=== PATIENT | female | born 1935 | race Caucasian/White ===

== ENCOUNTER 2018-09-12 12:17 | Inpatient (IN) | payer MEDICARE, BC ==
[2018-09-12] MEDS ORDERED: Acetaminophen 325 MG Tab PO PRN (13:13)
[2018-09-12] MEDS ORDERED: Sodium Chloride 0.9% 10 ML Syringe FLUSH PRN (13:13)
[2018-09-12] MEDS ORDERED: Docusate Sodium 100 MG Cap PO PRN (13:13)
[2018-09-12] MEDS ORDERED: Furosemide 40 MG/4 ML VIAL IVPUSH ONE (13:23)
[2018-09-12] MEDS ORDERED: Furosemide 40 MG Tab PO SCH (14:00)
[2018-09-12] MEDS ORDERED: Warfarin Sliding Scale PO SCH (14:15)
--- NOTE | 2018-09-12 16:11 | HP ---
ADMISSION DATE: 09/12/2018 History is from the patient and her old chart. She is deemed as a good historian. CHIEF COMPLAINT: Shortness of breath. HISTORY OF PRESENT ILLNESS: Ms. Bay is an 82-year-old woman from [place], [place], with a history of chronic kidney disease, coronary artery disease, and peripheral vascular disease who has had worsening swelling and dyspnea over the past month. She said it has particularly worsened over the past 2 weeks and she was seen in [place] on 08/22. She was started on furosemide 20 mg daily. She says it initially made her diurese, but she does not feel like it has done much in the last couple of weeks. She went to the clinic today because of the worsening symptoms. She was evaluated by Vic Booth PA-C, and arrangements were made for admission to [facility] for acute care. The patient denies any chest pain or palpitations. She does give a history of chronic atrial fibrillation. PAST MEDICAL HISTORY: Extensive for vascular disease including coronary angiogram with angioplasty and multiple stent placement at [place] over 10 years ago. She has chronic atrial fibrillation, on anticoagulation. She has had a lower extremity vascular graft from the left leg to the right leg for severe peripheral vascular disease. 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 She states she had drainage of her chest, likely thoracenteses, approximately 2 to 3 years ago done in [place]. She has had ORIF of a left ankle fracture, ORIF of a left wrist fracture, and closed right wrist and right ankle fractures. She has not been told she has had osteoporosis, however. She denies other surgeries, injuries, concussions, or significant medical problems. Of note, she was admitted to [facility] in [place] on July 22 of this year with an episode of acute tubular necrosis with renal insufficiency, hypercalcemia, hypomagnesemia, and hypokalemia. She also is listed as having factor V Leiden mutation with a history of DVT and antiphospholipid antibody syndrome. Echocardiogram has demonstrated mild mitral and tricuspid regurgitations, and no wall motion abnormalities on echocardiogram. MEDICATIONS: 1. Furosemide 20 mg daily. 2. Potassium chloride 20 mEq daily. 3. Amlodipine 10 mg daily. 4. Carvedilol 12.5 mg b.i.d. 5. Hyzaar 50/12.5, one daily. 6. Triamcinolone cream b.i.d. p.r.n. to leg dermatitis. 7. Warfarin adjusted to INR, currently 2.5 mg 6 days a week and 5 mg 1 day a week. 8. Mag-Ox 400 mg b.i.d. 9. Tylenol p.r.n. 10.Eucerin cream p.r.n. 11.Gelatin capsules p.r.n. 12.Nystatin powder to rash p.r.n. 13.Aspirin 81 mg daily. 14.Capsaicin cream. 15.Garlic capsules. ALLERGIES: Penicillin listed as hives; clindamycin, swallowing difficulty; and Levaquin cause shortness of breath. HABITS: Nonsmoker for the past 40 years. She does drink approximately 6 to 10 alcoholic beverages, usually beer, per week. REVIEW OF SYSTEMS: GENERAL: No seizures or syncope. She has slowly gained weight with today's weight at the [facility] 179 pounds. This is up from 160 pounds on 08/22 and 142 pounds back on 08/08. HEENT: Shows clear TMs. Pupils are equal and reactive. Oropharynx is clear with poor dentition. NECK: Supple. LUNGS: Have rales at the left greater than right bases. HEART: Irregular, in atrial fib, but rate is controlled. No murmurs heard. ABDOMEN: Mildly protuberant with normal bowel sounds. Soft and nontender. No masses. No organomegaly is palpable. EXTREMITIES: Show severe retracted, thin, avascular skin over both feet and ankles consistent with severe peripheral vascular disease. Pedal pulses are not palpable on either foot. She has pitting edema to the mid thighs on both sides and absence of 3 toes on the right. No open ulcerations. NEUROLOGIC: Mental status is intact. Motor exam appears symmetric. Gait is not tested. LABORATORY DATA: White count 5000, hemoglobin 12.9, MCV 88, platelets 408. INR 2.49. Sodium 138, potassium 4.1, BUN 16, creatinine 1.4, calcium 8.7, albumin 2.8. Chest x-ray shows significant cardiomegaly and vascular redistribution with bilateral pleural effusions, consistent with congestive heart failure. ASSESSMENT: 1. An 82-year-old woman with progressively worsening congestive heart failure, now approximately 30 pounds above her weight 6 weeks ago. 2. Coronary artery disease with history of stents. 3. Chronic atrial fibrillation, anticoagulated. 4. History of factor V Leiden mutation and antiphospholipid antibody syndrome. 5. Chronic kidney disease. 6. Osteoporosis with multiple previous fractures. PLAN: She is admitted to the hospital. We will diurese her acutely, watch her renal function, continue anticoagulation, and anticipate steady improvement. I would anticipate a 48 to 72-hour hospital stay with plans to return home upon discharge. We will continue to provide Palliative Care measures for underlying coronary artery disease, peripheral vascular disease, ambulatory difficulty, etc. /[id number] MARYANNE/NED
[2018-09-12] MEDS: Warfarin 2.5 MG Tab PO SCH (16:52)
[2018-09-12] MEDS: Carvedilol 12.5 MG Tab PO SCH (20:37)
[2018-09-12] MEDS: Potassium Chloride 20 MEQ Tab.ER PO SCH (20:37)
[2018-09-13] MEDS ORDERED: Metolazone 2.5 MG Tab PO ONE (07:44)
[2018-09-13] MEDS: Carvedilol 12.5 MG Tab PO SCH ×2 (08:08→20:54)
[2018-09-13] MEDS: Potassium Chloride 20 MEQ Tab.ER PO SCH ×2 (08:08→20:54)
[2018-09-13] MEDS: amLODIPine 5 MG Tab PO SCH (08:10)
[2018-09-13] MEDS ORDERED: Hydrochlorothiazide 12.5 MG Cap PO SCH (09:00)
[2018-09-13] MEDS ORDERED: Losartan 50 MG Tab PO SCH (09:00)
[2018-09-13] MEDS: Furosemide 40 MG Tab PO SCH ×2 (09:29→15:07)
--- NOTE | 2018-09-13 10:13 | CR ---
INDICATION: Dyspnea. CHEST TWO VIEWS: PA and lateral views of the chest 09/12/18 were compared with 08/22/18 and 07/20/18 and revealed continued cardiomegaly which appears to be generalized with tortuous aorta calcified in the arch and descending portion. Findings compatible with COPD are again noted. Bilateral pleural parenchymal changes are noted compatible with pneumonia and pleuritis appearing more prominent on the right in the mid lung field but also at both lung bases. Pleural effusions are small compatible with pleuritis and should be correlated clinically. Calcified pleural plagues are again suggested. Apical pleural thickening is noted right greater than left likely fibrotic in nature. IMPRESSION: 1. Areas of infiltration noted mid lung hoover and lung bases especially right mid lung field and left lung base. These appear to be chronic and maybe on the basis of fibrosis and/or chronic inflammatory disease with pleuritis and should be correlated clinically. Superimposed acute pneumonia certainly cannot be excluded. 2. No definite evidence of CHF. 3. ASHD with cardiomegaly. 4. Diminished bone density suggesting osteoporosis. 5. Probable COPD--correlate clinically. MTDD
[2018-09-13] MEDS: Warfarin 2.5 MG Tab PO SCH (16:14)
[2018-09-13] MEDS ORDERED: Spironolactone 25 MG Tab PO SCH (17:00)
[2018-09-14] MEDS: Furosemide 80 MG Tab PO SCH ×2 (08:10→13:33)
[2018-09-14] MEDS: Potassium Chloride 20 MEQ Tab.ER PO SCH ×2 (08:11→21:15)
[2018-09-14] MEDS: Carvedilol 12.5 MG Tab PO SCH ×2 (08:11→21:15)
[2018-09-14] MEDS: amLODIPine 5 MG Tab PO SCH (08:12)
--- NOTE | 2018-09-14 09:03 | PN ---
DATE SEEN: 09/13/2018 HISTORY: Radha is an 82-year-old resident of [place], [place], who was sent in from the [facility] because of worsening CHF. Looking back through her record, she had gained approximately 35 pounds over the past couple of months. She was short of breath and having bilateral leg edema. She was admitted yesterday, given IV Lasix, and she diuresed approximately 4 pounds overnight. She feels satisfactory this morning and cannot tell much change in her breathing. PHYSICAL EXAMINATION: VITAL SIGNS: Blood pressure 145/64, pulse 79 and regular, respirations 18, O2 saturation 90% on 2 L nasal cannula, temp 96.3, weight 170 pounds 8 ounces. SKIN: Clear without rash. She does have the thin erythematous dry taut skin over both lower extremities, consistent with severe peripheral vascular disease. LUNGS: Clear in the upper lung hoover. She has fine rales at both bases. HEART: Regular. No murmur or gallop heard. ABDOMEN: Soft, nontender. EXTREMITIES: Thin skin, peripheral vascular disease, and trace edema at the malleoli. LABORATORY: Sodium 140, potassium 3.9, BUN 15, creatinine 1.2. BNP 7,964. Albumin 2.4. TSH 4.93. Urinalysis is negative. ASSESSMENT: Severe and chronic congestive heart failure. PLAN: We will continue diuresis with oral Lasix twice a day. Add a single dose of Diulo. I anticipate at least another 48 hours of acute hospital stay with a goal weight gain over the next few days of another 10+ pounds. /[id number] MARYANNE/NED
--- NOTE | 2018-09-14 11:17 | PN ---
DATE SEEN: 09/14/2018 HISTORY: Ms. Bay is an 82-year-old woman, who was admitted on 09/12/2018 because of increasing swelling and shortness of breath. She was up 30 pounds from an outpatient weight about 2 months prior. On admission, she was started on IV Lasix and given a dose of oral metolazone. Her admission weight was 174 pounds 14 ounces and weight this morning down to 159 pounds 9 ounces for 15 pounds weight loss. She is still short of breath, when she walks. She remains on oxygen at 2 L nasal cannula with O2 saturation of 91%. She is not having any chest pain, nausea, vomiting, and is tolerating her medications satisfactorily. PHYSICAL EXAMINATION: GENERAL: She is alert, comfortable. She is a good historian. VITAL SIGNS: Blood pressure 140/71, pulse 79 and irregular and slow atrial fibrillation, respirations 17, O2 saturation 91% on 2 L nasal cannula, temp 97, weight 159 pounds 9 ounces. SKIN: Clear without rash. HEENT: Her mouth to be dry. LUNGS: Coarse rales at the left base and fine rales at the right base. Slightly distant breath sounds. HEART: Irregular in slow atrial fibrillation. No murmurs heard. ABDOMEN: Soft, nontender. EXTREMITIES: Thin hard skin changes of peripheral vascular disease. LABORATORY DATA: Electrolytes normal. BUN 13, creatinine 1.1, albumin 2.4. TSH 4.93. ASSESSMENT: Congestive heart failure, improving. PLAN: She will get additional Lasix today, I have increased her enalapril dose and added spironolactone. She remains on warfarin for atrial fibrillation. I will recheck a chest x-ray and laboratory studies in the morning with anticipate discharge to home in 24-48 hours. We will continue to provide palliative care measures for underlying O2 or underlying congestive heart failure, respiratory insufficiency, and continually reassess her need for oxygen. /[id number] MARYANNE/NED
[2018-09-14] MEDS: Spironolactone 25 MG Tab PO SCH (11:56)
[2018-09-14] MEDS: Warfarin 2.5 MG Tab PO SCH (16:59)
[2018-09-15] MEDS: Furosemide 80 MG Tab PO SCH ×2 (07:58→13:44)
[2018-09-15] MEDS: Potassium Chloride 20 MEQ Tab.ER PO SCH ×2 (08:38→20:46)
[2018-09-15] MEDS: amLODIPine 5 MG Tab PO SCH (08:38)
[2018-09-15] MEDS: Carvedilol 12.5 MG Tab PO SCH ×2 (08:39→20:46)
[2018-09-15] MEDS: Spironolactone 25 MG Tab PO SCH (08:39)
--- NOTE | 2018-09-15 12:57 | PN ---
DATE SEEN: 09/15/2018 HISTORY: Radha is an 82-year-old woman from [place], who was sent in from the [place] [facility] because of worsening congestive heart failure. On admission, she was quite dyspneic. She was having significant peripheral edema, and her admission weight was 174 pounds 14 ounces. She was started on IV diuresis. Her beta tra and ARB were briefly held, due to low blood pressure, but then resumed as her blood pressure tolerated. Her warfarin was continued for the chronic atrial fibrillation, and her potassium was replaced. She steadily lost weight, and her breathing is improved. She remains on oxygen. PHYSICAL EXAMINATION: GENERAL: She is alert and an excellent historian. VITAL SIGNS: Blood pressure 109/57, pulse 76 and irregular, respirations 16, O2 saturation 98% on 2 L nasal cannula, temp 98.7. Weight this morning 147 pounds 2 ounces for a 27 1/2-pound weight loss. HEENT: Clear. LUNGS: Coarse rales, lower 1/3 both sides. HEART: Irregular rate controlled. ABDOMEN: Soft. EXTREMITIES: Thick skin with severe peripheral vascular disease changes and trace edema at the malleoli. ASSESSMENT: 1. Severe congestive heart failure with cardiac decompensation, improving. 2. Chronic atrial fibrillation, on anticoagulation. 3. Severe peripheral vascular disease. 4. Poor mobility due to the above. PLAN: We will discontinue her IV. Continue her warfarin and her oral diuresis. Increase activity today and reassess her need for oxygen, and if continuing to improve, plan discharge to her home tomorrow with home health care. /[id number] MARYANNE/NED
[2018-09-15] MEDS: Warfarin 2.5 MG Tab PO SCH (16:58)
[2018-09-16] MEDS: Carvedilol 12.5 MG Tab PO SCH (08:09)
[2018-09-16] MEDS: Spironolactone 25 MG Tab PO SCH (08:09)
[2018-09-16] MEDS: Potassium Chloride 20 MEQ Tab.ER PO SCH (08:10)
[2018-09-16] MEDS: amLODIPine 5 MG Tab PO SCH (08:11)
--- NOTE | 2018-09-16 08:31 | CR ---
INDICATION: CHF/follow up infiltration. CHEST PA AND LATERAL: PA and lateral views of the chest were obtained 09/15/18 and compared with 09/12/18 revealing no significant appearing infiltrate change- -no definite new acute process. There is still no definite evidence of CHF. The heart is enlarged as previously with the aortic calcification and tortuosity. Findings compatible with COPD are again seen. Moderately extensive infiltration is noted on the right to the mid to lower lung field and at the left lower lung field. Pleural effusions are present bilaterally as suggested by blunted costophrenic angles and posterior sulci and may represent pleuritis in a patient with pneumonia. IMPRESSION: Fairly stable chest with multiple findings as noted above. MTDD
[2018-09-16] MEDS ORDERED: Furosemide 80 MG Tab PO SCH (09:00)
--- NOTE | 2018-09-16 11:01 | PN ---
DATE SEEN: 09/16/2018 REASON FOR ADMISSION: CHF. HISTORY OF PRESENT ILLNESS: This is an 82-year-old female admitted for CHF, treated with diuresis, feels ready to go home today. She is still on about a liter of oxygenation because she has hypoxia on ambulation. She complains of no chest pain. PAST MEDICAL HISTORY: Coronary artery disease, atrial fibrillation, factor V Leiden mutation. ALLERGIES: Reviewed. MEDICATIONS: Reviewed. PHYSICAL EXAMINATION: VITAL SIGNS: Today, her blood pressure is 141/59, pulse is 86, and temperature is 98.1. ENT: Normal. NECK: Supple with no JVD or distention. CHEST: Clear with exception of some rales in the lower bases. ABDOMEN: Soft. CARDIOVASCULAR: Irregular rate. EXTREMITIES: Trace edema. LABORATORY DATA: Today, INR is 2.2. ProBNP 6716. Creatinine is normal. FINAL IMPRESSION: 1. Congestive heart failure exacerbation. 2. Atrial fibrillation. 3. History of coronary disease. PLAN: My plan is to discharge her today to home. She will need Home Health to help with medications, weight, and blood pressure measurements. She has no difficulty with activities of daily living. /[id number] JEET/NED
--- NOTE | 2018-09-17 03:41 | DISCH ---
DISCHARGE DATE: 09/16/2018 REASON FOR ADMISSION: CHF exacerbation. DIAGNOSES: Coronary artery disease, atrial fibrillation, factor V Leiden mutation, and chronic kidney disease also has a history of osteoporosis. PROCEDURES: None. BRIEF HISTORY AND HOSPITAL COURSE: This is an 82-year-old female admitted with congestive heart failure exacerbation. She was treated with IV Lasix. She improved, diuresed over 30 pounds. Normal creatinine and vital signs on discharge. However, she is still short of breath and needs home O2. She also needs help with blood pressure, measurement weight, INR checks, and gets extremely short of breath on ambulation; therefore, most considered homebound and will need home health services. DISCHARGE MEDICATIONS: 1. 80 mg Lasix daily. 2. Aldactone 25 mg a day. 3. Potassium chloride 20 mEq b.i.d. 4. Enalapril 2.5 mg a day. 5. Carvedilol 12.5 mg b.i.d. 6. Amlodipine 5 mg a day. 7. Acetaminophen 650 mg q.4 hours p.r.n. 8. Coumadin as directed. 9. Aspirin 81 mg a day. FOLLOWUP: She will see her physician, Vic Booth next week. Please note that I spent more than 35 minutes in the discharge of the patient. /[id number] JEET/NED
== END 2018-09-16 10:40 | disposition home health service (06) | DRG 292 ==
LOC: FB.MS 13:03
PROVIDERS: ADMIT Family Medicine; ATTEND Family Medicine
DX: I13.0 Hypertensive heart and chronic kidney disease with heart failure and stage 1 through stage 4 chronic kidney disease, or unspecified chronic kidney disease (principal); D68.51 Activated protein C resistance; I50.9 Heart failure, unspecified; N18.9 Chronic kidney disease, unspecified; Z87.891 Personal history of nicotine dependence; I25.10 Atherosclerotic heart disease of native coronary artery without angina pectoris; I73.9 Peripheral vascular disease, unspecified; I48.2 Chronic atrial fibrillation; Z79.01 Long term (current) use of anticoagulants; Z95.5 Presence of coronary angioplasty implant and graft; I34.0 Nonrheumatic mitral (valve) insufficiency; I36.1 Nonrheumatic tricuspid (valve) insufficiency; M81.0 Age-related osteoporosis without current pathological fracture; Z87.310 Personal history of (healed) osteoporosis fracture; Z89.421 Acquired absence of other right toe(s); Z88.1 Allergy status to other antibiotic agents; Z88.0 Allergy status to penicillin; Z79.899 Other long term (current) drug therapy
CPT/HCPCS: 36415; 71046; 80053; 80069; 81001; 82306; 83735; 83880; 84443; 85018; 85025; 85610; 93005; 97161-GP; 97166-GO; A9270-GY; J1940

== ENCOUNTER 2021-12-27 10:13 | Observation (INO) | payer MEDICARE, BC ==
[2021-12-27] MEDS ORDERED: Diphtheria,Pertussis(Acell),Tetanus Vaccine 0.5 ML Syringe IM ONE (10:22)
[2021-12-27 10:48] LABS: ESTIMATED GFR 36 mL/min (>60)
[2021-12-27] MEDS ORDERED: Lidocaine 2% Viscous Solution 15 ML UD TOP ONE (11:18)
[2021-12-27] MEDS: Sodium Chloride 0.9% 1,000 ML IV SCH ×2 (13:24→20:26)
[2021-12-27] MEDS: Acetaminophen 325 MG Tab PO PRN ×2 (15:34→20:20)
[2021-12-27] MEDS ORDERED: Cephalexin 500 MG Cap PO ONE (20:29)
[2021-12-27] MEDS: MAGNESIUM OXIDE 400 MG PO SCH (21:54)
[2021-12-27] MEDS ORDERED: Sodium Chloride 0.9% 1,000 ML IV SCH (22:45)
[2021-12-28] MEDS ORDERED: Clotrimazole 1% Crm 30 GM Tube TOP SCH (00:15)
[2021-12-28] MEDS ORDERED: Clotrimazole 1% Crm 15 GM Tube TOP SCH (01:00)
[2021-12-28] MEDS: Betamethasone Dipropionate/Clotrimazole 0.05-1% Crm 15 GM Tube TOP SCH ×2 (01:42→12:30)
[2021-12-28] MEDS: Acetaminophen 325 MG Tab PO PRN ×3 (01:52→18:10)
[2021-12-28] MEDS: Pantoprazole 20 MG Tab, Delayed Release PO SCH (06:16)
[2021-12-28 06:39] LABS: ESTIMATED GFR 49 mL/min (>60)
[2021-12-28] MEDS: CARVEDILOL 12.5 MG PO SCH ×2 (09:58→18:13)
[2021-12-28] MEDS: AMLODIPINE 5 MG PO SCH (10:00)
[2021-12-28] MEDS: FUROSEMIDE 40 MG PO SCH (10:00)
[2021-12-28] MEDS: MAGNESIUM OXIDE 400 MG PO SCH ×2 (10:00→21:43)
[2021-12-28] MEDS: Cephalexin 250 MG Cap PO SCH ×4 (10:01→21:46)
[2021-12-28] MEDS ORDERED: Iopamidol 755 Mg/ML 75 ML Bottle IV ONE (12:05)
[2021-12-28] MEDS ORDERED: Nystatin Topical Powder 15 GM Bottle ONE (12:32)
[2021-12-28] MEDS: Nystatin Topical Powder 15 GM Bottle TOP SCH ×2 (13:19→21:43)
[2021-12-28] MEDS ORDERED: POTASSIUM CHLORIDE 10 MEQ PO SCH (18:00)
[2021-12-29] MEDS: Acetaminophen 325 MG Tab PO PRN ×3 (02:10→12:18)
[2021-12-29] MEDS: Pantoprazole 20 MG Tab, Delayed Release PO SCH (06:35)
[2021-12-29 06:47] LABS: ESTIMATED GFR 55 mL/min (>60)
[2021-12-29] MEDS: CARVEDILOL 12.5 MG PO SCH (08:39)
[2021-12-29] MEDS: FUROSEMIDE 40 MG PO SCH (08:42)
[2021-12-29] MEDS: MAGNESIUM OXIDE 400 MG PO SCH (08:43)
[2021-12-29] MEDS: AMLODIPINE 5 MG PO SCH (08:44)
[2021-12-29] MEDS: Nystatin Topical Powder 15 GM Bottle TOP SCH (08:45)
[2021-12-29] MEDS: Cephalexin 250 MG Cap PO SCH ×2 (08:48→12:18)
[2021-12-29] MEDS ORDERED: SPIRONOLACTONE 25 MG PO SCH (09:00)
== END 2021-12-29 13:15 | disposition home or self-care (01) ==
LOC: FB.ED 10:13 → FB.MS 11:30
PROVIDERS: ADMIT Student in an Organized Health Care Education/Training Program; ATTEND Student in an Organized Health Care Education/Training Program
DX: M54.9 Dorsalgia, unspecified (principal); I50.9 Heart failure, unspecified; E66.9 Obesity, unspecified; D68.2 Hereditary deficiency of other clotting factors; D68.61 Antiphospholipid syndrome; I13.0 Hypertensive heart and chronic kidney disease with heart failure and stage 1 through stage 4 chronic kidney disease, or unspecified chronic kidney disease; N18.31 Chronic kidney disease, stage 3a; I25.10 Atherosclerotic heart disease of native coronary artery without angina pectoris; Z88.1 Allergy status to other antibiotic agents; Z98.890 Other specified postprocedural states; Z88.0 Allergy status to penicillin; Z88.8 Allergy status to other drugs, medicaments and biological substances; Z79.82 Long term (current) use of aspirin; Z79.899 Other long term (current) drug therapy
CPT/HCPCS: 36415; 71046; 71260; 80048; 81001; 83735; 84484; 85025; 85027; 85610; 87086; 87088; 87186; 90471; 90715; 99285-25; A9270-GY; G0378; J7030; Q9967